=== PATIENT | female | born 1965 | race Caucasian/White ===

== ENCOUNTER 2017-04-29 11:57 | Inpatient (IN) | payer SELFPAY ==
[~2017-04-29] VITALS: Ht 172.7 cm; Wt 82.1 kg
[2017-04-29 12:10] VITALS: BP 141/62
--- NOTE | 2017-04-29 12:17 | NUR ---
PT BIBA TO ER BED 03.
--- NOTE | 2017-04-29 12:17 | NUR ---
PT UNRESPONSIVE FOLLWED BY SUDDEN ATTEMPTING TO GET OUT OF [facility]--WILL NOT REMAIN STILL--ACTIVELY DEFECATING IN [facility]--
--- NOTE | 2017-04-29 12:17 | NUR ---
PATIENT PRESENTS TO ED VIA EMS WITH OVERDOSE . PT COMBATIVE WHEN AROUSABLE] . DENIES N/V/D; SKIN IS PINK/WARM/DRY; AAOX4 WITH EVEN AND STEADY GAIT; LUNGS CLEAR BL; HR EVEN AND REGULAR; PT DENIES ANY FEVER, CP, SOB, OR COUGH AT THIS TIME; PATIENT STATES PAIN OF 0/10 AT THIS TIME; VSS;PATIENT LAYING ON ABDOMEN COMFORT; HOB ELEVATED; BEDRAILS UP X2; BED DOWN. ER MD AT BEDSIDE.
[2017-04-29] MEDS ORDERED: NACL 0.9% 1,000 ML IV ONE (12:18)
--- NOTE | 2017-04-29 12:31 | NUR ---
UNABLE TO START IV, PT VERY UNCOOPERATIVE.
[2017-04-29 12:55] LABS: APPEARANCE,URINE SL CLOUDY (CLEAR); BILIRUBIN,URINE NEGATIVE (NEGATIVE); BLOOD, URINE TRACE-L (NEGATIVE); COLOR,URINE YELLOW (YELLOW); LEUKOCYTE ESTERASE ,URINE 2+ (NEGATIVE); NITRITE, URINE NEGATIVE (NEGATIVE); PH,URINE >=9.0 (5.0-9.0); PROTEIN,URINE 2+ (NEGATIVE); UGLUCOSE NEGATIVE (NEGATIVE)
[2017-04-29 13:04] LABS: AMPHETAMINE, URINE NEG. ng/ml (NEG <=1000); BARBITURATE, URINE NEG. ng/ml (NEG <=200); BENZODIAZEPINE, URINE NEG. ng/mL (NEG <=200); CANNABINOID, URINE POS. ng/mL (NEG <=50); COCAINE, URINE POS. ng/mL (NEG <=300); OPIATE, URINE POS. ng/mL (NEG <=2000); PHENCYCLIDINE SCREEN,URINE NEG. ng/mL (NEG <=25)
[2017-04-29 13:09] LABS: BACTERIA,URINE 1+ /HPF (None Seen); WBC,URINE 50-60 /HPF (0-5)
[2017-04-29 13:10] LABS: MUCUS,URINE 1+ /LPF (None Seen)
[2017-04-29 13:53] LABS: BASOPHILS # (AUTO) 0.6 K/uL (0.00-0.22); BASOPHILS % (AUTO) 4.8 % (0.0-2.0); EOSINOPHILS # (AUTO) 0.2 K/uL (0-0.4); EOSINOPHILS % (AUTO) 1.5 % (0.0-4.0); HEMATOCRIT 47.7 % (36-48); HEMOGLOBIN 15.3 g/dL (12.0-16.0); LYMPHOCYTES % (AUTO) 7.4 % (20.5-51.1); MEAN CORPUSCULAR HEMOGLOBIN 27 pg (27-31); MEAN CORPUSCULAR HGB CONC 32 g/dL (33-37); MEAN CORPUSCULAR VOLUME 84 fL (80-94); MONOCYTES # (AUTO) 0.2 K/uL (0.8-1.0); MONOCYTES % (AUTO) 1.3 % (1.7-9.3); PLATELET COUNT (AUTO) 309 K/uL (140-450); RED BLOOD CELL COUNT(AUTO) 5.66 MIL/uL (4.20-5.40); RED CELL DISTRIBUTION WIDTH 12.8 % (11.6-13.7)
[2017-04-29 14:00] LABS: ANION GAP 19.5 (8-16); CALCIUM 9.7 mg/dL (8.5-10.1); CARBON DIOXIDE 24.5 mmol/L (21-32); CHLORIDE 101 mmol/L (98-107); CREATININE 0.9 mg/dL (0.6-1.3); GFR ARICAN-AMERICAN 85 mL/min (>90); GFR NON ARICAN-AMERICAN 70 mL/min (>90); GLUCOSE 129 mg/dL (74-106); SODIUM SERUM 140 mmol/L (136-145); UREA NITROGEN, BLOOD 9 mg/dL (7-18)
--- NOTE | 2017-04-29 14:07 | NUR ---
PT WAS CLEANED AGAIN, SHAWNEE MARTINEZ CHANGED---PT REMAINS SOMNOLENT BUT AGGRESSIVE WHEN AWAKE ---SHOUTING PROFANITIES WHEN AWAKE
[2017-04-29 14:16] LABS: ALANINE AMINOTRANSFERASE 58 U/L (12-78); ALBUMIN 4.3 g/dL (3.4-5.0); ALKALINE PHOSPHATASE 121 U/L (46-116); ASPARTATE AMINOTRANSFERASE 64 U/L (15-37); BILIRUBIN,DIRECT 0.1 mg/dL (0.0-0.3); TOTAL BILIRUBIN 0.9 mg/dL (0.0-1.0); TOTAL PROTEIN, SERUM 10.4 g/dL (6.4-8.2)
[2017-04-29 14:17] LABS: ALCOHOL, BLOOD < 3 mg/dL (<3)
[2017-04-29 14:25] LABS: PARTIAL THROMBOPLASTIN TIME 24.7 secs (22-35.6); PROTHROMBIN TIME 10.4 secs (10.8-13.4)
[2017-04-29] MEDS ORDERED: ONDANSETRON 4 MG/2 ML VIAL IVP ONE (15:10)
--- NOTE | 2017-04-29 15:41 | NUR ---
PORTABLE X RAY AT BEDSIDE
--- NOTE | 2017-04-29 16:47 | NUR ---
RESTING WITH OU CLOSED, NO S/S RESP DISTRESS
[2017-04-29] MEDS ORDERED: cefTRIAXone 1,000 MG VIAL ONE (17:19)
[2017-04-29] MEDS ORDERED: MORPHINE SULFATE 2 MG/ML SYR IVP PRN (17:20)
[2017-04-29] MEDS ORDERED: ACETAMINOPHEN 325 MG TAB PO PRN (17:20)
[2017-04-29] MEDS ORDERED: HYDROcodone/APAP 7.5/325 MG 1 TAB PO PRN (17:20)
[2017-04-29] MEDS ORDERED: DOCUSATE SODIUM 100 MG GELCAP PO PRN (17:20)
[2017-04-29] MEDS ORDERED: NACL 0.9% 1,000 ML IV SCH (17:25)
[2017-04-29] MEDS ORDERED: LORazepam 2 MG/ML VIAL IVP ONE (17:25)
[2017-04-29] MEDS ORDERED: LORazepam 2 MG/ML VIAL IVP PRN (17:25)
[2017-04-29] MEDS ORDERED: PROMETHAZINE 25 MG/ML VIAL IVP PRN (17:30)
[2017-04-29] MEDS ORDERED: MORPHINE SULFATE 2 MG/ML SYR IVP SCH (17:30)
[2017-04-29 17:58] LABS: CHOL/HDL RATIO 1.9 (1-4.5); PHOSPHORUS 2.4 mg/dL (2.5-4.9)
--- NOTE | 2017-04-29 18:01 | NUR ---
PT TO CT
--- NOTE | 2017-04-29 18:10 | NUR ---
return from ct----self repositioned in [facility]---moving all extremities, no repeated dryheaving pt will not answer questions but does shout to be left alone, hyper profanities--- will continue to observe and monitor for changes
[2017-04-29 18:25] LABS: FREE T4 (FREE THYROXINE) 1.46 ng/dL (0.76-1.46); THYROID STIMULATING HORMONE 0.75 uIU/mL (0.34-3.76)
--- NOTE | 2017-04-29 18:53 | NUR ---
icu unable to receive report at this time---stated will be after change of shift
--- NOTE | 2017-04-29 19:17 | NUR ---
Pt transferred to ICU via report given to tahira fagan---pt remains [facility]---not answering questions but uses colorful languange--self repositioning in [place] [facility]----
--- NOTE | 2017-04-29 19:30 | NUR ---
RECEIVED PATIENT AT 1930 FROM MOODY CAZARES. PATIENT CAME FROM EMERGENCY ROOM VIA [facility]. PATIENT WAS RESTLESS AND ALTERED. NO SIGNS OF RESPIRATORY DISTRESS, PATIENTS O2 SATURATION 100% ON ROOM AIR. PATIENT DOES NOT SPEAK OFTEN, WHEN SHE DOES SPEECH IS CLEAR. PATIENTS LUNG SOUNDS ARE CLEAR BILATERALLY, S1S2 HEARD ON AUSCULTATION, PATIENT HAS ACTIVE BOWEL SOUNDS, PATIENT VOMITED X1 ON THE UNIT. PATIENT WEARING ADULT BRIEFS, UNABLE TO MAKE IT TO THE BATHROOM. PATIENT VIOLENTLY MOVING IN BED, RIPPING OFF HER LEADS AND MONITOR CABLES. PATIENT CAN MOVE WITH OUT LIMITS, BUT UNDERESTIMATES STABILITY. IV SITE ON THE RIGHT FINGER, 24 GAUGE IT IS PATENT, NONTENDER. UPON ARRIVAL TO THE UNIT PATIENT YELLED PROFANITIES AND REFUSED TO OBEY INSTRUCTIONS. PATIENT RIPPED OFF MONITOR CABLES, LAID ON CABLES, AND INTERFERED WITH VITAL SIGN MONITORING. WILL CONTINUE TO MONITOR PATIENT CLOSELY, FREQUENT VISUAL CHECKS, AREA FREE OF CLUTTER, CALL LIGHT WITHIN REACH.
[2017-04-29 19:51] VITALS: BP 173/83
[2017-04-29 20:00] VITALS: BP 162/76
--- NOTE | 2017-04-29 20:15 | NUR ---
PATIENT RESTLESS, NONCOMPLIANT, REMOVING CABLES
[2017-04-29] MEDS: LORazepam 1 MG TAB PO SCH (20:58)
--- NOTE | 2017-04-29 21:00 | NUR ---
PATIENT VOMITED X3, VERY RESTLESS AND NONCOMPLIANT
--- NOTE | 2017-04-29 22:00 | NUR ---
PATIENT RESTLESS AND NONCOMPLIANT, REMOVES MONITOR CABLES, REFUSES VITALS SIGNS AND ORAL MEDICATIONS.
--- NOTE | 2017-04-29 22:25 | NUR ---
STARTED IV FLUID AND BOLUS ON PATIENT. PT MOVING AROUND IN BED. WILL CONTINUE TO CLOSELY MONITOR THE PATIENT.
[2017-04-29] MEDS: ONDANSETRON 4 MG/2 ML VIAL IM/IVP PRN (22:35)
--- NOTE | 2017-04-29 22:35 | NUR ---
PT MOVING AROUND BED. DISCONNECTED IVF AT THIS TIME. PT STILL REFUSES TO BE MONITORED ON MONITOR. PT EXPLAINED IMPORTANCE OF BEING MONITORED PT STILL REFUSES AT THIS TIME. WILL CONTINUE TO CLOSELY MONITOR.
[2017-04-29] MEDS: NACL 0.9% 1,000 ML IV SCH (22:54)
--- NOTE | 2017-04-29 23:20 | NUR ---
CALLED DR. MUNOZ ABOUT PATIENTS STATUS AND INFORMED HIM PATIENT WAS PULLING OUT HEART LEADS, RESTLESS, REFUSAL TO LAY STILL AND MOVING AROUND ALOT IN BED, WHICH ALMOST COMPROMISED HER IV SITE. DR. MUNOZ SAID TO HOLD OFF ON THE IV FLUIDS UNTIL A LATER TIME. OTHER ORDERS RECEIVED, WILL CARRY OUT DR. BRENNAN.
[2017-04-30] VITALS (7 sets, daily range): BP systolic 128–179; BP diastolic 61–103
--- NOTE | 2017-04-30 01:10 | NUR ---
PT CURRENTLY SLEEPING WITH HEAD FACING THE FOOT OF THE BED. BREATHING IS EVEN AND UNLABORED. BED IN LOW POSITION, SAFETY PRECAUTIONS MAINTAINED, WILL CONTINUE TO CLOSELY MONITOR.
--- NOTE | 2017-04-30 01:45 | NUR ---
PATIENT VOMITED, MEDICATION WAS ADMINISTERED PER PHYSICIANS ORDERS
--- NOTE | 2017-04-30 02:30 | NUR ---
PATIENT RESTLESS, REFUSING TO OBEY COMMANDS AND COMBATIVE.
--- NOTE | 2017-04-30 03:45 | NUR ---
PATIENT SLEEPING, VERY RESTLESS. NO SIGNS OF DISTRESS
--- NOTE | 2017-04-30 04:45 | NUR ---
PATIENT GIVEN A BED BATH, CULTURE OF LEFT BUTTOCK ABSCESS COLLECTED AND TAKEN TO THE LAB. DRESSING CHANGED ON LEFT BUTTOCK WOUND, PICTURE WAS ALSO TAKEN.
[2017-04-30] MEDS: LORazepam 1 MG TAB PO SCH ×3 (05:00→21:06)
--- NOTE | 2017-04-30 05:30 | NUR ---
PATIENT RESTLESS, NO SIGNS OF DISTRESS. PULLING OFF GOWN AND SHEETS.
--- NOTE | 2017-04-30 05:53 | NUR ---
PATIENT VOMITED, WILL ADMINISTER PRN MEDICATION FOR N/V ORDERED BY PHYSICIAN.
[2017-04-30] MEDS ORDERED: LORazepam 2 MG/ML VIAL IVP SCH (06:00)
--- NOTE | 2017-04-30 07:30 | NUR ---
RECEIVED REPORT FROM GRIEVANCE AND APPEALS SPECIALIST RN. PT SLEEPING BUT ABLE TO WAKE UP. PT DOES NOT ANSWER QUESTIONS. PT REFUSED BEDSIDE MONITOR, ON ROOM AIR, NO S/S OF RESPIRATORY DISTRESS NOTED. IV SITE TO RIGHT FINGER #24, SALINE LOCKED, PER GRIEVANCE AND APPEALS SPECIALIST RN, PT REFUSED ALL THE MONITORING AND IV FLUIDS. SKIN NON INTACT ( SEE WOUND ASSESSMENT), DRESSING TO LEFT BUTTOCK NOTED BUT PT REFUSED TO TOUCH IT. UNABLE TO GET MORE INFORMATION DUE TO PT STATUS. WILL CONTINUE TO MONITOR PT CLOSELY.
--- NOTE | 2017-04-30 08:00 | NUR ---
EXPLAINED TO PT THAT IT IS IMPORTANT TO MONITOR PT'S VITALS, PT DID NOT REFUSE TO PUT HER ON MONITOR.
--- NOTE | 2017-04-30 08:45 | NUR ---
DR. MUNOZ IN TO SEE PT. UPDATED PT'S CONDITION. WILL FOLLOW UP.
--- NOTE | 2017-04-30 08:45 | NUR ---
MAKING ROUNDS, NOTIFIED HIM PT BLOOD PRESSURE IS HIGH, 172/100. PER , GIVE PT MORPHINE SULFATE 2 MG TO LOWER DOWN BLOOD PRESSURE. WILL CARRY OUT ORDER.
[2017-04-30] MEDS: MULTIVITAMIN/MINERALS 1 TAB PO SCH (09:00)
--- NOTE | 2017-04-30 09:24 | NUR ---
BP 150/81. HR 71, PT REFUSED 0900 PO MEDS.
[2017-04-30] MEDS: NACL 0.9% 1,000 ML IV SCH (09:57)
--- NOTE | 2017-04-30 10:09 | NUR ---
PATIENT HAS BEEN SCREENED AND CATEGORIZED MODERATE NUTRITION RISK. PATIENT WILL BE SEEN WITHIN 3-5 DAYS OF ADMISSION. 05/02/17-05/04/[address]
--- NOTE | 2017-04-30 10:35 | NUR ---
PT KEPT MOVING IN BED. RIGHT FINGER IV LEAKING, WILL REMOVE IV AND INSERT NEW IV. CHARGE NURSE AWARE.
[2017-04-30] MEDS ORDERED: PROMETHAZINE 25 MG/ML VIAL IVP PRN (10:44)
--- NOTE | 2017-04-30 11:45 | NUR ---
NOTIFIED DR. PENA CHARGE NURSE AND I TRIED TO INSERT NEW IV, WE CAN NOT FIND IT.
[2017-04-30] MEDS: ONDANSETRON 4 MG/2 ML VIAL IM/IVP PRN (15:31)
--- NOTE | 2017-04-30 15:31 | NUR ---
PT HAD NAUSEA AND VOMITING, ZOFRAN GIVEN BY IM PER ORDER. WILL CONTINUE TO MONITOR.
--- NOTE | 2017-04-30 16:05 | NUR ---
CHARGE NURSE TRIED AGAIN TO INSERT IV, UNABLE TO FIND IV. DR. PENA AWARE.
--- NOTE | 2017-04-30 16:15 | NUR ---
PT OPENS EYES, STATED " I NEED METHADONE, I NEED IT BADLY ".
--- NOTE | 2017-04-30 16:18 | NUR ---
PT BP 148/95. HR 71. NO S/S OF RESPIRATORY DISTRESS NOTED.
--- NOTE | 2017-04-30 16:58 | NUR ---
DR. PENA STATED HE WILL TRY TO INSERT CENTRAL LINE TOMORROW.
--- NOTE | 2017-04-30 17:40 | NUR ---
REPORT GIVEN TO GARY CAZARES. PT WILL BE TRANSFERRED TO TELE 108 B.
--- NOTE | 2017-04-30 18:40 | NUR ---
PT TRANSFERRED TO TELE 108 B, NO S/S OF RESPIRATORY DISTRESS NOTED. HR 82, BP 149/82
--- NOTE | 2017-04-30 18:43 | NUR ---
RECEIVED PATIENT FROM ICU, PT ALERT AND DROWSY, ABLE TO STATE NAME AND THAT SHE IS IN THE HOSPITAL. BOWEL SOUNDS ACTIVE IN ALL 4 QUADRANTS. BOWEL AND BLADDER INCONTINENCE. BEDREST. ABSCESS ON BUTTOCKS. NO IV IN PLACE, MULTIPLE FAILED ATTEMPTS IN ICU DR PENA TO PUT IN PICC TOMORROW. ORIENTED PATIENT TO UNIT AND HOSPITAL, PT DID NOT VERBALIZE UNDERSTANDING. BED IN LOW POSITION WITH BILATERAL HALF SIDE RAILS UP, CALL LIGHT WITHIN REACH.
--- NOTE | 2017-04-30 19:24 | NUR ---
PT SLEEPING, NO SIGNS OF ACUTE DISTRESS. ENDORSED TO MOTORCYCLE TECHNICIAN RN FOR CONTINUITY OF CARE.
--- NOTE | 2017-04-30 19:30 | NUR ---
RECEIVED REPORT FROM GARY RN AT BEDSIDE. PT IS SLEEPING RIGHT NOW BUT EASILY AROUSABLE. ALERT AWAKE ORIENTED X3 WITH CONFUSION AT TIMES. INITIAL ASSESSMENT DONE. NO S/S OF RESPIRATORY DISTRESS OR SOB NOTED. NO C/O PAIN OR ANY DISCOMFORT AT THIS TIME. PT HAS NO IV ACCESS BECAUSE SHE REFUSED TO HAVE ONE AND AM SHIFT NURSE SAID THAT DR. MUNOZ MADE AWARE. PLAN OF CARE REVIEWED TO PT AND VERBALIZED UNDERSTANDING AND NEED TO BE REINFORCED. CALL LIGHT WITHIN REACH. WILL CONTINUE TO MONITOR.
--- NOTE | 2017-04-30 20:00 | NUR ---
CALLED DR. OGDEN AND CLARIFIED THE ORDER REGARDING NPO & 1;1 SITTER AND NEW ORDERS WERE GIVEN (PLS. SEE CPOE). NEW ORDERS NOTED AND CARRIED OUT. ALSO DR. OGDEN NOTIFIED THAT PT IS REFUSING TO HAVE IV LINE DESPITE EXPLAINING THE RISKS AND BENEFITS OF IT AND SAID THERE'S NOTHING HE CAN DO ABOUT IT. WILL TRY TO CONVINCE AGAIN THE PT LATER. WILL CONTINUE TO MONITOR.
[2017-04-30] MEDS: CLINDAMYCIN 600 MG in DEXTROSE 5% 50 ML IV SCH (21:00)
[2017-05-01] VITALS: BP 123/62
--- NOTE | 2017-05-01 00:10 | NUR ---
PT STILL SLEEPING RIGHT NOW BUT EASILY AROUSABLE. SHE STILL REFUSED TO HAV IV LINE DESPITE EXPLAINING THE RISKS AND BENEFITS OF IT. WILL TRY TO CONVINCE HER LATER. ALL NEEDS ARE ATTENDED. WILL CONTINUE TO MONITOR.
[2017-05-01] MEDS: NACL 0.9% 1,000 ML IV SCH ×2 (02:37→19:17)
[2017-05-01 04:00] VITALS: BP 129/67
--- NOTE | 2017-05-01 04:00 | NUR ---
PT REFUSED AGAIN TO HAVE IV LINE DESPITE EXPLAINING THE RISKS AND BENEFITS OF IT. WILL TRY AGAIN TO CONVINCE HER LATER. WILL CONTINUE TO MONITOR.
[2017-05-01] MEDS: LORazepam 1 MG TAB PO SCH ×3 (04:16→21:00)
[2017-05-01] MEDS: CLINDAMYCIN 600 MG in DEXTROSE 5% 50 ML IV SCH ×3 (05:00→22:19)
--- NOTE | 2017-05-01 05:00 | NUR ---
AM CARE RENDERED. BED LINEN CHANGED. INSTRUCTED PT TO REPOSITION. KEPT CLEAN AND DRY. CALL LIGHT WITHIN REACH. WILL CONTINUE TO MONITOR.
--- NOTE | 2017-05-01 07:13 | NUR ---
PT HAS NO S/S OF ANY DISCOMFORT. PLAN OF CARE ENDORSED TO GARY CAZARES AT BEDSIDE FOR CONTINUITY OF CARE.
--- NOTE | 2017-05-01 07:14 | NUR ---
PT SLEEPING BUT AROUSABLE, NO SIGNS OF ACUTE DISTRESS. BOWEL SOUNDS ACTIVE IN ALL 4 QUADRANTS. BOWEL AND BLADDER INCONTINENCE. ABSCESS ON LEFT BUTTOCKS. ON BEDREST. NO IV ACCESS AT THIS TIME, UNABLE TO OBTAIN. RE-ORIENTED PATIENT TO HOSPITAL AND TO UNIT, PT VERBALIZED UNDERSTANDING. BED IN LOW POSITION WITH BILATERAL HALF SIDE RAILS UP, CALL LIGHT WITHIN REACH.
[2017-05-01 07:35] VITALS: BP 159/90
--- NOTE | 2017-05-01 08:00 | NUR ---
ATTEMPTED TO TRY TO START IV, BUT PATIENT IS REFUSING. SHE TOLD ME TO COME BACK LATER THAT SHE DOESN'T WANT AN IV RIGHT NOW.
[2017-05-01] MEDS: MULTIVITAMIN/MINERALS 1 TAB PO SCH (08:35)
--- NOTE | 2017-05-01 09:00 | NUR ---
ONCE AGAIN ATTEMPTED TO START AND IV, PATIENT IS STILL REFUSING. WILL CONTINUE TO MONITOR AND TRY AGAIN LATER.
[2017-05-01 09:18] LABS: T4 (THYROXINE) 11.2 ug/dL (4.5-12.0)
--- NOTE | 2017-05-01 09:45 | NUR ---
PATIENT STILL REFUSING ADMINISTRATION OF IV, DR MUNOZ AWARE.
[2017-05-01 12:00] VITALS: BP 157/89
--- NOTE | 2017-05-01 12:30 | NUR ---
RECEIVED NEW ORDERS FOR AM LABS AND TRANSFER FROM TELE TO MED SURG, NOTED, WILL CARRY OUT.
--- NOTE | 2017-05-01 15:01 | NUR ---
SS NOTE: I ATTEMPTED TO SPEAK WITH PT BEDSIDE BUT PT WAS SLEEPING AND COULD NOT BE AWAKENED BY VOICE.
[2017-05-01 16:00] VITALS: BP 152/93
[2017-05-01 16:02] LABS: HEMOGLOBIN A1C 6.4 % (4.8-5.6)
[2017-05-01 16:21] LABS: BASOPHILS # (AUTO) 0.7 K/uL (0.00-0.22); EOSINOPHILS # (AUTO) 0.2 K/uL (0-0.4); EOSINOPHILS % (AUTO) 1.2 % (0.0-4.0); HEMATOCRIT 45.8 % (36-48); LYMPHOCYTES # (AUTO) 2.2 K/uL (2.5-16.5); MEAN CORPUSCULAR HEMOGLOBIN 27 pg (27-31); MEAN CORPUSCULAR HGB CONC 33 g/dL (33-37); MEAN CORPUSCULAR VOLUME 83 fL (80-94); MONOCYTES # (AUTO) 0.7 K/uL (0.8-1.0); MONOCYTES % (AUTO) 5.4 % (1.7-9.3); NEUTROPHILS # (AUTO) 9.7 K/uL (1.8-7.7); PLATELET COUNT (AUTO) 366 K/uL (140-450); RED CELL DISTRIBUTION WIDTH 12.8 % (11.6-13.7); WHITE BLOOD COUNT (AUTO) 13.5 K/uL (4.8-10.8)
[2017-05-01 16:30] LABS: ANION GAP 13.1 (8-16); CALCIUM 8.6 mg/dL (8.5-10.1); CARBON DIOXIDE 26.4 mmol/L (21-32); CREATININE 0.8 mg/dL (0.6-1.3); POTASSIUM 3.5 mmol/L (3.5-5.1)
[2017-05-01 16:32] LABS: MAGNESIUM 1.9 mg/dL (1.8-2.4); PHOSPHORUS 3.1 mg/dL (2.5-4.9)
--- NOTE | 2017-05-01 18:05 | NUR ---
RECEIVED CALL FROM LAB WITH PRESUMPTIVE POSITIVE MRSA WOUND CULTURE FOR LEFT ABSCESS ON BUTTOCKS. PAGED MERCHANDISE COLLECTOR RESIDENT.
--- NOTE | 2017-05-01 18:08 | NUR ---
SPOKE WITH MD, WILL WAIT FOR WOUND CULTURE AND SENSITIVITY, NOTED.
--- NOTE | 2017-05-01 19:33 | NUR ---
PT SLEEPING AND AROUSABLE, NO SIGNS OF ACUTE DISTRESS. ENDORSED TO REHABILITATION AIDE NURSE FOR CONTINUITY OF CARE.
--- NOTE | 2017-05-01 19:34 | NUR ---
RECD. RESTING IN BED, AWAKE, ALERT, ORIENTED X2, NOTED TATTOOS ON BILATERAL ARMS AND LEGS. RESPIRATION EVEN AND UNLABORED. ALWAYS COVERING SELF WITH BLANKET. EXPLAINED THAT SHE NEEDS TO HAVE IV LINE FOR THE ANTIBIOTIC, BUT STILL REFUSED FOR NEW IV LINE TO BE INSERTED. GIVE WATER WITH ICE AND JUICES, ENCOURAGED TO DRINK MORE FLUIDS. PLAN OF CARE FOR THE SHIFT DISCUSSED. NEEDS REINFORCEMENT. NO APPEARANCE OF PAIN NOTED 0/10.
--- NOTE | 2017-05-01 20:00 | NUR ---
Patient's Plan of Care was discussed and reviewed with SUPERINTENDENT STATIONS: SHAYLEE Hill
--- NOTE | 2017-05-01 20:30 | NUR ---
WANTS TO HAVE A SHOWER, BUT CHANGED MIND LATER, STATED SHE FEELS DIZZY.
--- NOTE | 2017-05-01 22:00 | NUR ---
GET UPSET, STATED BF WANTS TO VISIT HER BUT SYSTEMS ANALYST ENGINEER DID NOT ALLOW. CALLED LOBBY, BUT SYSTEMS ANALYST ENGINEER STATED NOBODY CAME TO THE WINDOW REQUESTING TO SEE PATIENT.
[2017-05-02] VITALS: BP 133/55
--- NOTE | 2017-05-02 01:00 | NUR ---
BF CAME AND VISIT FOR 10 MINUTES. ATE APPLE SAUCE. STILL REFUSING IV INSERTION.
--- NOTE | 2017-05-02 02:00 | NUR ---
SLEEPING COMFORTABLY IN BED.
[2017-05-02] MEDS: CLINDAMYCIN 600 MG in DEXTROSE 5% 50 ML IV SCH ×2 (05:00→13:00)
[2017-05-02] MEDS: LORazepam 1 MG TAB PO SCH ×2 (05:00→13:00)
--- NOTE | 2017-05-02 05:15 | NUR ---
REFUSED BLOOD DRAW FOR LAB TEST TODAY.
--- NOTE | 2017-05-02 05:35 | NUR ---
REFUSED TO BE CLEANSED AND BEDDINGS CHANGED, WANTS TO SLEEP MORE.
--- NOTE | 2017-05-02 07:00 | NUR ---
STILL SLEEPING WITH HEAD AND BODY COVERED WITH BLANKET. CONDITION REMAINED STABLE. UNCOOPERATIVE DURING SHIFT. WILL ENDORSE TO AM NURSE FOR CONTINUITY OF CARE.
--- NOTE | 2017-05-02 07:20 | NUR ---
RECEIVED REPORT FROM CHAR JUNE. PT IS SLEEPING IN BED BUT EASILY AWAKEN, PT IS A/OX2, PT HAS SKIN ABSCESS ON LEFT BUTTOCKS, PT REFUSED IV INSERTION, NO S/S OF RESPIRATORY DISTRESS OR DISCOMFORT NOTED, DISCUSSED PLAN OF CARE WITH PT, PT VERBALIZED UNDERSTANDING, SAFETY/FALL PRECAUTIONS ARE IN PLACE, CALL LIGHT IS WITHIN REACH, WILL CONTINUE TO MONITOR.
[2017-05-02 08:00] VITALS: BP 156/83
[2017-05-02] MEDS ORDERED: HYDROcodone/APAP 7.5/325 MG 1 TAB PO SCH (08:33)
[2017-05-02] MEDS ORDERED: LEVO750T2 PO (08:39)
[2017-05-02] MEDS: MULTIVITAMIN/MINERALS 1 TAB PO SCH (08:49)
--- NOTE | 2017-05-02 09:30 | NUR ---
I ASKED THE PATIENT IF ANYONE COULD PICK HER UP ONCE SHE WAS DISCHARGED, PT SAID SHE CALLED HER FRIEND (JODY) BUT HE WILL NOT BE ABLE TO PICK HER UP UNTIL 1430.
--- NOTE | 2017-05-02 11:00 | NUR ---
PATIENT'S BED LINENS AND GOWN WERE CHANGED, ALL NEEDS MET AT THIS TIME, CALL LIGHT IS WITHIN REACH.
[2017-05-02] MEDS: NACL 0.9% 1,000 ML IV SCH (11:57)
--- NOTE | 2017-05-02 13:30 | NUR ---
PT RESTING IN BED AT THIS TIME, NO S/S OF RESPIRATORY DISTRESS OR DISCOMFORT NOTED.
--- NOTE | 2017-05-02 14:12 | NUR ---
PT DISCHARGE INSTRUCTIONS GIVEN, ID WRIST BAND REMOVED, PATIENT ACCOMPANIED BY HER FRIEND (JODY), PT STABLE UPON DISCHARGE.
== END 2017-05-02 14:15 | disposition home or self-care (01) | DRG 896 ==
LOC: MED 11:57 → MIC 17:21 → MTU 04-30 18:28
PROVIDERS: ADMIT Family Medicine; ATTEND Family Medicine
DX: F11.23 Opioid dependence with withdrawal (principal); G92 Toxic encephalopathy; N17.0 Acute kidney failure with tubular necrosis; N39.0 Urinary tract infection, site not specified; L03.115 Cellulitis of right lower limb; L03.116 Cellulitis of left lower limb; L02.31 Cutaneous abscess of buttock; R80.9 Proteinuria, unspecified; F19.10 Other psychoactive substance abuse, uncomplicated; F43.9 Reaction to severe stress, unspecified; M47.9 Spondylosis, unspecified; Y92.89 Other specified places as the place of occurrence of the external cause
CPT/HCPCS: 36415; 70450; 71010; 80048; 80053; 80076; 80305; 81001; 81025; 82150; 83036; 83690; 83735; 83880; 84100; 84436; 84439; 84443; 84479; 85025; 85610; 85730; 87070; 87081; 87086; 87186; 93005; 96361; 96365; 96375; 99285; G0482; J0696; J2060; J2270; J2405; J2550; J3490; J7030; J7060; Q0092